=== PATIENT | male | born 1965 | race African-American/Black ===

== ENCOUNTER → 2019-02-13 | Emergency (ER) | payer OTHER ==
[~2019-02-13] VITALS: Ht 175.3 cm; Wt 81.8 kg
[~2019-02-13] MED LIST: ACCU-CHEK XX ONE; ADENOSINE 3 MG/ML SYRINGE IV ONE; INSULIN LISPRO 100 UNIT/ML VIAL SC ONE; SOD CHLORIDE 0.9% 820 ML IV ONE
[2019-02-13 14:41] VITALS: Ht 175.3 cm; Wt 81.8 kg
--- NOTE | 2019-02-13 14:43 | ERD ---
ER Documentation Chief Complaint Chief Complaint hypoglycemia requiring clearance to book ROS All systems reviewed and are negative except as per history of present illness. Physical Exam Vitals Vital Signs Date Temp Pulse Resp B/P (MAP) Pulse Ox O2 O2 Flow FiO2 Time Delivery Rate 02/13/19 97.8 101 22 121/81 97 14:41 (94) Physical Exam Const: No acute distress Head: Atraumatic Eyes: Normal Conjunctiva ENT: Normal External Ears, Nose and Mouth. Neck: Full range of motion. No meningismus. Resp: Clear to auscultation bilaterally Cardio: Regular rate and rhythm, no murmurs Abd: Soft, non tender, non distended. Normal bowel sounds Skin: No petechiae or rashes Back: No midline or flank tenderness Ext: No cyanosis, or edema Neur: Awake and alert Psych: Normal Mood and Affect Result Diagram: 02/13/19 1500 02/13/19 1500 Results 24 hrs Laboratory Tests Test 02/13/19 14:37 02/13/19 14:43 02/13/19 15:00 02/13/19 15:54 Bedside Glucose 447 mg/dL 411 mg/dL Blood Gas Blood venous Specimen Source Arterial Blood 02/13/2019 2:50:0 Date Drawn 4 PM Arterial Blood VENOUS LINE Gas Puncture Site Benji Test N/A Venous Blood pH 7.401 Venous Blood 47.8 mmHG pCO2 (Temp Corrected) Venous Blood pO2 35.9 mmHG (Temp Corrected) Venous Blood 29.0 mmol/L HCO3 Venous Blood 70.6 mmHG Oxygen Saturation Venous Blood 3.4 mmol/L Base Excess Venous Blood 14.2 g/dl Total Hemoglobin Venous Blood 68.1 % Oxyhemoglobin Venous Blood 0.2 % Methemoglobin Blood Gas A-a O2 446.6 mmHg Differential Carboxyhemoglobi 3.3 % n Blood Gas 37.0 C Temperature Blood Gas 20.0 Respiration Rate Blood Gas Actual 24 Respiration Rate Blood Gas ROOM AIR Modality FiO2 21.0 % Blood Gas 10 Pressure Support Blood Gas 15/5 IPAP/EPAP Ratio Blood Gas SAMINA TORRES Critical Value Read Back Blood Gas RT Notified Whom Blood Gas 02/13/2019 3:10:2 Notified Time 6 PM White Blood 8.4 10^3/ul Count Red Blood Count 4.60 10^6/ul Hemoglobin 13.5 g/dl Hematocrit 40.9 % Mean Corpuscular 88.9 fl Volume Mean Corpuscular 29.3 pg Hemoglobin Mean Corpuscular 33.0 g/dl Hemoglobin Lidia nt Red Cell 13.8 % Distribution Width Platelet Count 302 10^3/UL Mean Platelet 9.2 fl Volume Immature 0.400 % Granulocytes % Neutrophils % 63.1 % Lymphocytes % 21.9 % Monocytes % 10.3 % Eosinophils % 3.3 % Basophils % 1.0 % Nucleated Red 0.0 /100WBC Blood Cells % Immature 0.030 10^3/ul Granulocytes # Neutrophils # 5.3 10^3/ul Lymphocytes # 1.8 10^3/ul Monocytes # 0.9 10^3/ul Eosinophils # 0.3 10^3/ul Basophils # 0.1 10^3/ul Nucleated Red 0.0 10^3/ul Blood Cells # Sodium Level 135 mmol/L Potassium Level 4.4 mmol/L Chloride Level 96 mmol/L Carbon Dioxide 32 mmol/L Level Anion Gap 7 Blood Urea 10 mg/dl Nitrogen Creatinine 0.53 mg/dl Est Glomerular > 60 mL/min Filtrat Rate mL/min Glucose Level 479 mg/dl Calcium Level 9.6 mg/dl Phosphorus Level 4.5 mg/dl Magnesium Level 2.2 mg/dl Test 02/13/19 17:01 Bedside Glucose 359 mg/dL Current Medications Medications Dose Sig/Rogelio Start Time Status Last (Trade) Ordered Route PRN Stop Time Admin Dose Reason Admin Sodium 820 ml @ ONCE ONCE 02/13/19 DC 02/13/19 Chloride 820 mls/hr IV 15:00 15:01 02/13/19 15:59 Adenosine 6 mg ONCE ONCE 02/13/19 Cancel IV 16:00 02/13/19 16:01 Insulin 10 unit ONCE ONCE 02/13/19 DC 02/13/19 Human SC 16:30 17:05 Lispro 02/13/19 16:45 (Humalog) Diagnostic 1 ea 2 HRS AFTER 02/13/19 DC Test (Pha) HUMALOG ONCE 16:30 (Accu-Chek) XX 02/13/19 16:45 Procedures/MDM DOCUMENTS REVIEWED: ED nurse, LAB INTERPRETATION: [] EKG: Time: [ ] My Interpretation IMAGING: [ ] ED COURSE: [] REEXAMINATION/REEVALUATION: Time: [] MEDICAL DECISION MAKING: []. Stable for discharge with precautionary instructions and outpatient follow-up as counseled. Counseled patient[ and family] regarding diagnostic workup, diagnosis and need for followup. Understands to return to ED if symptoms recur, worsen or any other concerns. Departure Diagnosis: Primary Impression: Diabetes mellitus out of control Diabetes mellitus type: type 2 Glycemic state: with hyperglycemia Qualified Codes: E11.65 - Type 2 diabetes mellitus with hyperglycemia Additional Impression: Hyperglycemia Condition: Stable NAMRATA HAAS MD Feb 13, 2019 14:43
[2019-02-13 17:20] VITALS: BP 124/91; PULSE 86; RESP 19
== END | disposition home or self-care (01) ==
LOC: E/R 14:32
DX: E11.65 Type 2 diabetes mellitus with hyperglycemia (principal)
CPT/HCPCS: 36415; 80048; 82803; 82962; 83735; 84100; 85025; 96372; 99284; J1815